=== PATIENT | male | born 1975 ===

== ENCOUNTER → 2021-05-23 | Day surgery (SDC) | payer OTHER ==
[~2021-05-23] MED LIST: Bupivacaine 0.25% 10 ML SDV ONE; Lactated Ringers 1,000 ML IV SCH; Lidocaine 1% 30 ML SDV ONE; Lidocaine 1% 5 ML VIAL ONE; Lidocaine 1%/Sod Bicarbonate in NS 8.4% 1 ML Syringe IDERM PRN; Midazolam 1 MG/ML 2 ML SDV ONE; Propofol 200 MG/20 ML SDV ONE; Sodium Chloride 0.9% 10 ML Syringe FLUSH PRN
== END | disposition home or self-care (01) ==
LOC: JD.SDS 10:09
PROVIDERS: ATTEND Orthopaedic Surgery
DX: G56.13 Other lesions of median nerve, bilateral upper limbs (principal); G56.03 Carpal tunnel syndrome, bilateral upper limbs; Z88.5 Allergy status to narcotic agent; Z91.030 Bee allergy status
CPT/HCPCS: 64721; J2250; J2704; J3490; J7120; 01810